=== PATIENT | female | born 1970 | race Caucasian/White ===

== ENCOUNTER → 2017-11-21 | Outpatient (CLI) | payer BC ==
[~2017-11-21] MED LIST: IBUP200C8 PO; LORA0.5T PO; muscle relaxer PO
[2017-11-21 14:41] LABS: BASOPHILS # (AUTO) 0.07 x10^3/uL (0-0.1); BASOPHILS % (AUTO) 1 % (0-1); EOSINOPHILS # (AUTO) 0.29 x10^3/uL (0-0.4); EOSINOPHILS % (AUTO) 3 % (1-7); LYMPHOCYTES # (AUTO) 2.59 x10^3/uL (1-3.4); LYMPHOCYTES % (AUTO) 26 % (22-44); MD NO; MEAN CORPUSCULAR HEMOGLOBIN 30.3 pg (27.0-34.8); MEAN CORPUSCULAR HGB CONC 32.5 g/dL (32.4-35.8); MEAN CORPUSCULAR VOLUME 93.3 fL (80-100); MEAN PLATELET VOLUME 8.3 fL (7.4-10.4); MONOCYTES # (AUTO) 0.54 x10^3/uL (0.2-0.8); MONOCYTES % (AUTO) 6 % (2-9); NEUTROPHILS # (AUTO) 6.38 x10^3/uL (1.8-6.8); NEUTROPHILS % (AUTO) 65 % (42-75); PLATELET COUNT 257 x10^3/uL (130-400); RED CELL DISTRIBUTION WIDTH 12.8 % (9.6-15.2)
[2017-11-21 14:51] LABS: INTERNATIONAL NORMALIZED RATIO 1.03 (0.93-1.1); PROTHROMBIN TIME 10.7 Seconds (9.6-11.5)
[2017-11-21 14:52] LABS: ALBUMIN 4.2 g/dL (3.4-5.0); ANION GAP 4 mmol/L (5-15); CALCIUM 9.1 mg/dL (8.5-10.1); CHLORIDE 106 mmol/L (98-107); CREATININE 0.78 mg/dL (0.55-1.02)
[2017-11-21 14:55] LABS: MICROSCOPIC NOT IND
[2017-11-21 14:59] LABS: ALANINE AMINOTRANSFERASE 30 U/L (12-78); ALKALINE PHOSPHATASE 57 U/L (45-117); BILIRUBIN,TOTAL 1.1 mg/dL (0.2-1.0); TOTAL PROTEIN 7.8 g/dL (6.4-8.2)
[2017-11-21 15:04] LABS: CULTURE INDICATED? NO
== END | disposition home or self-care (01) ==
LOC: STAR 13:49
PROVIDERS: ATTEND Orthopaedic Surgery Orthopaedic Surgery of the Spine
DX: Z01.818 Encounter for other preprocedural examination (principal); M43.26 Fusion of spine, lumbar region; M54.16 Radiculopathy, lumbar region
CPT/HCPCS: 36415; 71046; 80053; 81003; 85025; 85610; 85730; 93005

== ENCOUNTER 2017-11-28 05:43 | Day surgery (SDC) | payer BC ==
[~2017-11-28] VITALS: Ht 162.6 cm; Wt 61.4 kg
[2017-11-28] MEDS ORDERED: LACTATED RINGERS 1,000 ML IV SCH (06:40)
[2017-11-28] MEDS ORDERED: BUPIVACAINE 0.25% ONE (06:53)
[2017-11-28] MEDS ORDERED: THROMBIN 5,000 UNIT VIAL TP ONE (06:53)
[2017-11-28] MEDS ORDERED: LIDOCAINE/PF 0.5% ,50ML ONE (06:53)
[2017-11-28] MEDS ORDERED: VANCOMYCIN 1,000 MG ONE ×2 (06:53→07:34)
[2017-11-28] MEDS ORDERED: EPINEPHRINE 1 MG/ML, 1ML ONE (06:53)
[2017-11-28] MEDS ORDERED: MIDAZOLAM 1 MG/ML, 2ML ONE (06:57)
[2017-11-28] MEDS ORDERED: FENTANYL PF 250 MCG/5ML ONE (06:57)
[2017-11-28] MEDS ORDERED: PROPOFOL 10 MG/ML, 20ML ONE (06:57)
[2017-11-28] MEDS ORDERED: ROCURONIUM 10MG/ML,5ML ONE (06:58)
[2017-11-28] MEDS ORDERED: PROPOFOL 100 ML ONE (06:58)
[2017-11-28] MEDS ORDERED: SCOPOLAMINE PATCH, 1.5MG PATCH.TD72 TD ONE ×3 (07:08→07:30)
[2017-11-28] MEDS ORDERED: FAMOTIDINE 20 MG TABLET PO ONE (07:30)
[2017-11-28] MEDS ORDERED: OxyconTIN ER 20 MG TAB.ER PO ONE (07:30)
[2017-11-28] MEDS ORDERED: ACETAMINOPHEN 500 MG TABLET PO ONE (07:30)
[2017-11-28] MEDS ORDERED: GABAPENTIN 300 MG CAPSULE PO ONE (07:30)
[2017-11-28] MEDS ORDERED: LIDOCAINE 0.5%-EPI 1:200K, 50ML INFIL ONE (07:55)
[2017-11-28] MEDS ORDERED: BUPIVACAINE/PF-EPI 0.25% 1:200K INFIL ONE (08:13)
[2017-11-28] MEDS ORDERED: LABETALOL 5MG/ML, 20ML IV PRN (08:30)
[2017-11-28] MEDS ORDERED: DIAZEPAM 5 MG/ML, 2ML IVPush PRN (08:30)
[2017-11-28] MEDS ORDERED: OXYcodone 5 MG/5 ML ORAL.SOL UDC PO PRN (08:30)
[2017-11-28] MEDS ORDERED: hydrALAzine 20 MG/ML, 1ML IV PRN (08:30)
[2017-11-28] MEDS ORDERED: PROMETHAZINE 25 MG/ML, 1ML IV PRN (08:30)
[2017-11-28] MEDS ORDERED: ONDANSETRON 2MG/ML, 2ML IV PRN (08:30)
[2017-11-28] MEDS ORDERED: FENTANYL PF 100 MCG/2ML IV PRN (08:30)
[2017-11-28] MEDS ORDERED: MEPERIDINE/PF 25MG/0.5ML IVPush PRN (08:30)
[2017-11-28] MEDS ORDERED: DEXAMETHASONE 4 MG/ML, 1ML ONE ×2 (08:31→08:32)
[2017-11-28] MEDS ORDERED: ONDANSETRON 2MG/ML, 2ML ONE ×2 (08:32)
[2017-11-28] MEDS ORDERED: MEPERIDINE/PF 50 MG/ML ONE (09:22)
[2017-11-28] MEDS ORDERED: HYDROmorphone 2 MG/ML, 1ML ONE (09:23)
[2017-11-28] MEDS ORDERED: OXYcodone 5 MG/5 ML ORAL.SOL UDC ONE (09:23)
[2017-11-28] MEDS: HYDROmorphone 1 MG/ML, 1ML IV PRN ×2 (09:30→09:40)
== END 2017-11-28 13:30 | disposition home or self-care (01) ==
LOC: OUT 05:43
PROVIDERS: ATTEND Orthopaedic Surgery Orthopaedic Surgery of the Spine
DX: M48.061 Spinal stenosis, lumbar region without neurogenic claudication (principal); M54.16 Radiculopathy, lumbar region; M21.379 Foot drop, unspecified foot; Z79.899 Other long term (current) drug therapy; Z88.6 Allergy status to analgesic agent; Z72.89 Other problems related to lifestyle; Z98.890 Other specified postprocedural states
CPT/HCPCS: 63047; 72100; 72120; J0171; J1100; J1170; J2001; J2175; J2250; J2405; J2704; J3010; J3370; J3490; J7120